=== PATIENT | female | born 1935 | race African-American/Black ===

== ENCOUNTER 2019-08-06 12:42 | Inpatient (IN) ==
[2019-08-06 13:33] LABS: Basophils % 1.2 % (0.0-0.8); Eosinophils # 0.1 10*3/uL (0.0-0.87); Eosinophils % 3.1 % (0.00-10.9); Hemoglobin 10.6 GM/DL (12.0-16.0); Immature Granulocytes % 0.3 %; Immature Granulocytes Absolute 0.01 #; Lymphocytes % 29.5 % (21.3-54.2); Mean Corpuscular HGB Conc 31.2 GM/DL (32-36); Mean Corpuscular Volume 73.9 FL (87-102); Mean Platelet Volume 9.4 FL (9.6-12.0); Monocytes % 18.2 % (1.7-12.7); Neutrophils % 47.7 % (38.7-73.9); Platelet Count 243 T/CUMM (130-400); Red Cell Distribution Width 19.9 % (9.3-17.3); White Blood Count 3.3 T/CUMM (4-12)
[2019-08-06 14:01] LABS: Albumin 2.7 G/DL (3.4-5.0); Bilirubin,Total 0.4 MG/DL (0.2-1.0); Calcium 8.7 MG/DL (8.5-10.1); Osmolality,Calculated 274.1 MOS/KG (273-304); PT Patient Result 94.6 SECS (9.6-12.2); Total Protein 6.8 G/DL (6.4-8.3)
[2019-08-06 14:04] LABS: INR 8.9
[2019-08-06 14:26] LABS: Band Neutrophils 2 % (0-10); Lymphocytes 26 % (20-55); Platelet Estimate Normal; Segmented Neutrophils 58 % (50-85); Total Cells Counted 100
[2019-08-06 14:28] LABS: Hypochromasia Slight; Microcytosis 1+
[2019-08-06] MEDS ORDERED: FUROSEMIDE 40 MG/4 ML VIAL IV STA (15:34)
[2019-08-06] MEDS ORDERED: ONDANSETRON 4 MG/2 ML VIAL IV PRN (15:37)
[2019-08-06] MEDS ORDERED: ACETAMINOPHEN 325 MG TABLET PO PRN (15:37)
[2019-08-06] MEDS ORDERED: MORPHINE 4 MG/1 ML VIAL IV PRN (15:37)
[2019-08-06] MEDS ORDERED: MAGNESIUM SULF RIDER 4 GM in PREMIX 1 EACH IV PRN (15:43)
[2019-08-06] MEDS ORDERED: POTASSIUM CHLORIDE RIDER 10 MEQ in PREMIX 1 EACH IV PRN (15:49)
[2019-08-06] MEDS ORDERED: PHYTONADIONE 5 MG/5 ML ORAL.SYR PO STA ×2 (15:50→15:56)
[2019-08-06 16:42] LABS: Apearance,Urine CLEAR (Clear); Bilirubin,Urine Negative (Negative); Blood, Urine Small mg/dL (Negative); Glucose,Urine (UA) Negative (Negative); Ketones,Urine Negative (Negative); Nitrite,Urine Negative (Negative); Protein,Urine Negative; RBC,Urine 1 /HPF (0-4); Squamous Epithelial Cell,Urine Occasional /HPF (0-10); Urine Color Yellow (Yellow); Urine Specific Gravity 1.006 (1.001-1.035); Urine Urobilinogen < 2.0 EU/DL (0.2-1.0); WBC,Urine 1 /HPF (0-6)
[2019-08-06] MEDS ORDERED: PNEUMOCOCCAL VACCINE (13 VALENT) 0.5 ML SYRINGE IM ONE (18:52)
[2019-08-06] MEDS: POTASSIUM CHLORIDE 20 MEQ TABLET PO PRN (20:44)
[2019-08-07] MEDS: POTASSIUM CHLORIDE 20 MEQ TABLET PO PRN ×4 (01:58→12:45)
[2019-08-07 06:18] LABS: Basophils % 1.2 % (0.0-0.8); Eosinophils # 0.2 10*3/uL (0.0-0.87); Eosinophils % 4.7 % (0.00-10.9); Hematocrit 30.8 VOL% (35.7-47.0); Hemoglobin 9.7 GM/DL (12.0-16.0); Immature Granulocytes % 0.3 %; Immature Granulocytes Absolute 0.01 #; Lymphocytes # 1.1 10*3/uL (1.4-4.0); Mean Corpuscular HGB Conc 31.5 GM/DL (32-36); Mean Platelet Volume 9.8 FL (9.6-12.0); Monocytes % 21.7 % (1.7-12.7); Neutrophils % 40.1 % (38.7-73.9); Platelet Count 226 T/CUMM (130-400); Red Blood Count 4.22 MC/CUMM (3.8-5.5); Red Cell Distribution Width 19.9 % (9.3-17.3); White Blood Count 3.4 T/CUMM (4-12)
[2019-08-07 06:41] LABS: INR 4.4
[2019-08-07 06:45] LABS: Eosinophils 2 % (0-10); Lymphocytes 27 % (20-55); Platelet Estimate Normal; Segmented Neutrophils 52 % (50-85); Total Cells Counted 100
[2019-08-07 06:46] LABS: Anisocytosis 2+; Microcytosis 2+
[2019-08-07 06:47] LABS: Hypochromasia 1+; Ovalocytes Few; Target Cells Slight
[2019-08-07 06:55] LABS: PT Patient Result 47.4 SECS (9.6-12.2)
[2019-08-07 07:12] LABS: Albumin 2.4 G/DL (3.4-5.0); Bilirubin,Total 0.9 MG/DL (0.2-1.0); Calcium 9.1 MG/DL (8.5-10.1); Osmolality,Calculated 278.5 MOS/KG (273-304); Total Protein 6.5 G/DL (6.4-8.3)
[2019-08-07] MEDS: FUROSEMIDE 40 MG/4 ML VIAL IV SCH ×2 (08:44→16:13)
[2019-08-07] MEDS: METOPROLOL TARTRATE 50 MG TABLET PO SCH ×2 (08:45→20:49)
[2019-08-07] MEDS: PANTOPRAZOLE 40 MG TABLET PO SCH (08:45)
[2019-08-07] MEDS: SERTRALINE 100 MG TABLET PO SCH (08:45)
[2019-08-07] MEDS: LISINOPRIL/HCTZ 20-25 MG TABLET PO SCH (08:45)
[2019-08-07] MEDS: ATORVASTATIN 40 MG TABLET PO SCH (08:45)
[2019-08-07] MEDS: MAGNESIUM SULF RIDER 2 GM in PREMIX 1 EACH IV PRN (08:46)
[2019-08-07] MEDS ORDERED: amLODIPine 5 MG TABLET PO SCH (09:00)
[2019-08-08 05:23] LABS: Basophils # 0.1 10*3/uL (0.0-0.2); Basophils % 1.4 % (0.0-0.8); Eosinophils # 0.1 10*3/uL (0.0-0.87); Eosinophils % 3.6 % (0.00-10.9); Hematocrit 32.9 VOL% (35.7-47.0); Hemoglobin 10.2 GM/DL (12.0-16.0); Immature Granulocytes % 0.3 %; Immature Granulocytes Absolute 0.01 #; Lymphocytes # 1.3 10*3/uL (1.4-4.0); Lymphocytes % 36.3 % (21.3-54.2); Mean Corpuscular Volume 73.8 FL (87-102); Mean Platelet Volume 9.3 FL (9.6-12.0); Monocytes % 25.1 % (1.7-12.7); Neutrophils % 33.3 % (38.7-73.9); Platelet Count 218 T/CUMM (130-400); Red Blood Count 4.46 MC/CUMM (3.8-5.5); Red Cell Distribution Width 20.1 % (9.3-17.3); White Blood Count 3.7 T/CUMM (4-12)
[2019-08-08 05:32] LABS: INR 2.3
[2019-08-08 05:34] LABS: PT Patient Result 25.2 SECS (9.6-12.2)
[2019-08-08 05:43] LABS: Albumin 2.6 G/DL (3.4-5.0); Bilirubin,Total 0.8 MG/DL (0.2-1.0); Calcium 9.4 MG/DL (8.5-10.1); Osmolality,Calculated 279.7 MOS/KG (273-304); Total Protein 6.7 G/DL (6.4-8.3)
[2019-08-08 06:23] LABS: Anisocytosis 1+; Eosinophils 2 % (0-10); Hypochromasia 1+; Lymphocytes 36 % (20-55); Microcytosis Slight; Ovalocytes Few; Platelet Estimate Adequate; Polychromasia Slight; Segmented Neutrophils 53 % (50-85); Smudge Cells Few; Target Cells Few; Total Cells Counted 100
[2019-08-08] MEDS: POTASSIUM CHLORIDE 20 MEQ TABLET PO PRN (06:46)
[2019-08-08] MEDS: ATORVASTATIN 40 MG TABLET PO SCH (08:36)
[2019-08-08] MEDS: FUROSEMIDE 40 MG/4 ML VIAL IV SCH (08:36)
[2019-08-08] MEDS: LISINOPRIL/HCTZ 20-25 MG TABLET PO SCH (08:36)
[2019-08-08] MEDS: METOPROLOL TARTRATE 50 MG TABLET PO SCH ×2 (08:36→21:36)
[2019-08-08] MEDS: MAGNESIUM SULF RIDER 2 GM in PREMIX 1 EACH IV PRN (08:37)
[2019-08-08] MEDS: PANTOPRAZOLE 40 MG TABLET PO SCH (08:38)
[2019-08-08] MEDS: SERTRALINE 100 MG TABLET PO SCH (08:38)
[2019-08-08] MEDS: FUROSEMIDE 40 MG TABLET PO SCH (15:24)
[2019-08-09 05:17] LABS: Basophils # 0.1 10*3/uL (0.0-0.2); Basophils % 1.1 % (0.0-0.8); Eosinophils # 0.2 10*3/uL (0.0-0.87); Eosinophils % 3.9 % (0.00-10.9); Hematocrit 32.7 VOL% (35.7-47.0); Hemoglobin 10.1 GM/DL (12.0-16.0); Immature Granulocytes % 0.2 %; Immature Granulocytes Absolute 0.01 #; Lymphocytes # 1.4 10*3/uL (1.4-4.0); Lymphocytes % 31.3 % (21.3-54.2); Mean Corpuscular HGB Conc 30.9 GM/DL (32-36); Mean Corpuscular Volume 73.5 FL (87-102); Mean Platelet Volume 9.9 FL (9.6-12.0); Monocytes % 23.6 % (1.7-12.7); Neutrophils % 39.9 % (38.7-73.9); Platelet Count 226 T/CUMM (130-400); Red Blood Count 4.45 MC/CUMM (3.8-5.5); Red Cell Distribution Width 19.9 % (9.3-17.3); White Blood Count 4.4 T/CUMM (4-12)
[2019-08-09 05:32] LABS: INR 2.2
[2019-08-09 05:39] LABS: PT Patient Result 24.1 SECS (9.6-12.2)
[2019-08-09 05:46] LABS: Eosinophils 4 % (0-10); Hypochromasia 1+; Lymphocytes 29 % (20-55); Microcytosis Slight; Ovalocytes Slight; Platelet Estimate Adequate; Segmented Neutrophils 42 % (50-85); Total Cells Counted 100
[2019-08-09 06:00] LABS: Albumin 2.6 G/DL (3.4-5.0); Bilirubin,Total 0.6 MG/DL (0.2-1.0); Calcium 9.4 MG/DL (8.5-10.1); Osmolality,Calculated 275.1 MOS/KG (273-304); Total Protein 6.9 G/DL (6.4-8.3)
[2019-08-09] MEDS: POTASSIUM CHLORIDE 20 MEQ TABLET PO PRN ×2 (06:40→12:28)
[2019-08-09] MEDS ORDERED: DIAZEPAM 5 MG TABLET PO ONE (07:37)
[2019-08-09] MEDS ORDERED: POTASSIUM CHLORIDE RIDER 10 MEQ in PREMIX 1 EACH IV PRN (07:37)
[2019-08-09] MEDS ORDERED: diphenhydrAMINE CAP 25 MG CAPSULE PO ONE (07:37)
[2019-08-09] MEDS ORDERED: MAGNESIUM SULF RIDER 2 GM in PREMIX 1 EACH IV PRN (07:37)
[2019-08-09] MEDS ORDERED: POTASSIUM CHLORIDE 20 MEQ TABLET PO ONE (07:39)
[2019-08-09] MEDS ORDERED: SODIUM CHLORIDE 0.45% 1,000 ML IV SCH (08:00)
[2019-08-09] MEDS: SERTRALINE 100 MG TABLET PO SCH (09:01)
[2019-08-09] MEDS: ATORVASTATIN 40 MG TABLET PO SCH (09:02)
[2019-08-09] MEDS: FUROSEMIDE 40 MG TABLET PO SCH ×2 (09:02→15:27)
[2019-08-09] MEDS: lisinopriL 20 MG TABLET PO SCH (09:02)
[2019-08-09] MEDS: METOPROLOL TARTRATE 50 MG TABLET PO SCH ×2 (09:02→21:09)
[2019-08-09] MEDS: PANTOPRAZOLE 40 MG TABLET PO SCH (09:02)
[2019-08-09] MEDS: SODIUM CHLORIDE 0.9% 1,000 ML IV SCH ×2 (12:50→21:14)
[2019-08-09] MEDS ORDERED: PHYTONADIONE 5 MG/5 ML ORAL.SYR PO ONE (20:00)
[2019-08-09] MEDS: SIMETHICONE CHEW 125 MG TABLET PO SCH (21:09)
[2019-08-10 05:29] LABS: Basophils # 0.1 10*3/uL (0.0-0.2); Basophils % 1.4 % (0.0-0.8); Eosinophils # 0.2 10*3/uL (0.0-0.87); Eosinophils % 3.4 % (0.00-10.9); Hematocrit 34.2 VOL% (35.7-47.0); Hemoglobin 10.6 GM/DL (12.0-16.0); Immature Granulocytes % 0.2 %; Immature Granulocytes Absolute 0.01 #; Lymphocytes # 1.5 10*3/uL (1.4-4.0); Lymphocytes % 34.2 % (21.3-54.2); Mean Corpuscular Volume 73.7 FL (87-102); Mean Platelet Volume 9.9 FL (9.6-12.0); Monocytes % 20.8 % (1.7-12.7); Platelet Count 235 T/CUMM (130-400); Red Blood Count 4.64 MC/CUMM (3.8-5.5); Red Cell Distribution Width 20.1 % (9.3-17.3); White Blood Count 4.4 T/CUMM (4-12)
[2019-08-10 05:55] LABS: Calcium 9.2 MG/DL (8.5-10.1)
[2019-08-10 05:59] LABS: Anisocytosis 2+; Eosinophils 3 % (0-10); Lymphocytes 26 % (20-55); Microcytosis 2+; Nucleated Red Blood Cells 1 (0-5); Platelet Estimate Normal; Segmented Neutrophils 52 % (50-85); Total Cells Counted 100
[2019-08-10 06:00] LABS: Hypochromasia 1+; Ovalocytes Few; Target Cells 1+
[2019-08-10] MEDS ORDERED: diphenhydrAMINE CAP 25 MG CAPSULE PO ONE ×2 (06:00→09:00)
[2019-08-10] MEDS ORDERED: DIAZEPAM 5 MG TABLET PO ONE ×2 (06:00→09:00)
[2019-08-10 06:01] LABS: Polychromasia Slight; Stomatocytes Few
[2019-08-10 06:16] LABS: PT Patient Result 21.3 SECS (9.6-12.2)
[2019-08-10] MEDS: SODIUM CHLORIDE 0.9% 1,000 ML IV SCH ×2 (06:28→18:00)
[2019-08-10] MEDS: METOPROLOL TARTRATE 50 MG TABLET PO SCH ×3 (06:32→20:53)
[2019-08-10] MEDS: lisinopriL 20 MG TABLET PO SCH ×2 (06:33→10:37)
[2019-08-10] MEDS ORDERED: HEPARIN/NACL 0.9% 2 UNITS/ML 1,500 ML IV ONE (06:55)
[2019-08-10] MEDS ORDERED: LIDOCAINE 1% 20 ML VIAL ONE ×2 (07:26→08:02)
[2019-08-10] MEDS ORDERED: fentaNYL 100 MCG/2 ML VIAL ONE (07:28)
[2019-08-10] MEDS ORDERED: MIDAZOLAM 2 MG/2 ML VIAL ONE (07:28)
[2019-08-10] MEDS: SIMETHICONE CHEW 125 MG TABLET PO SCH ×4 (10:36→20:53)
[2019-08-10] MEDS: FUROSEMIDE 40 MG TABLET PO SCH ×2 (10:36→16:54)
[2019-08-10] MEDS: SERTRALINE 100 MG TABLET PO SCH (14:28)
[2019-08-10] MEDS: PANTOPRAZOLE 40 MG TABLET PO SCH (14:28)
[2019-08-10] MEDS: ATORVASTATIN 40 MG TABLET PO SCH (14:28)
[2019-08-11 04:54] LABS: Hematocrit 33.1 VOL% (35.7-47.0); Hemoglobin 10.1 GM/DL (12.0-16.0); Mean Corpuscular Volume 74.2 FL (87-102); Red Blood Count 4.46 MC/CUMM (3.8-5.5); White Blood Count 4.7 T/CUMM (4-12)
[2019-08-11 04:55] LABS: Basophils # 0.1 10*3/uL (0.0-0.2); Basophils % 1.3 % (0.0-0.8); Eosinophils # 0.2 10*3/uL (0.0-0.87); Eosinophils % 3.6 % (0.00-10.9); Immature Granulocytes % 0.4 %; Immature Granulocytes Absolute 0.02 #; Lymphocytes # 1.3 10*3/uL (1.4-4.0); Lymphocytes % 28.7 % (21.3-54.2); Mean Corpuscular HGB Conc 30.5 GM/DL (32-36); Mean Platelet Volume 8.9 FL (9.6-12.0); Monocytes % 20.8 % (1.7-12.7); Neutrophils % 45.2 % (38.7-73.9); Platelet Count 199 T/CUMM (130-400); Red Cell Distribution Width 20.2 % (9.3-17.3)
[2019-08-11 05:01] LABS: INR 1.4; PT Patient Result 14.9 SECS (9.6-12.2)
[2019-08-11 05:24] LABS: Osmolality,Calculated 278.8 MOS/KG (273-304)
[2019-08-11 05:45] LABS: Anisocytosis 1+; Eosinophils 4 % (0-10); Hypochromasia 1+; Lymphocytes 28 % (20-55); Segmented Neutrophils 54 % (50-85); Smudge Cells Few; Total Cells Counted 100
[2019-08-11 05:46] LABS: Ovalocytes 1+; Platelet Estimate Adequate
[2019-08-11] MEDS: FUROSEMIDE 40 MG TABLET PO SCH (09:00)
[2019-08-11] MEDS: lisinopriL 20 MG TABLET PO SCH (09:00)
[2019-08-11] MEDS: SERTRALINE 100 MG TABLET PO SCH (09:00)
[2019-08-11] MEDS: ATORVASTATIN 40 MG TABLET PO SCH (09:00)
[2019-08-11] MEDS: PANTOPRAZOLE 40 MG TABLET PO SCH (09:01)
[2019-08-11] MEDS: METOPROLOL TARTRATE 50 MG TABLET PO SCH (09:01)
[2019-08-11] MEDS: SIMETHICONE CHEW 125 MG TABLET PO SCH (09:16)
[2019-08-11] MEDS: POTASSIUM CHLORIDE 20 MEQ TABLET PO PRN ×2 (10:26→11:59)
[2019-08-11] MEDS: MAGNESIUM SULF RIDER 2 GM in PREMIX 1 EACH IV PRN (10:27)
[2019-08-11] MEDS ORDERED: APIXABAN 2.5 MG TABLET PO ONE (11:24)
[2019-08-11 11:31] VITALS: BP 105/67
[2019-08-11] MEDS ORDERED: WARFARIN 5 MG TABLET PO SCH (18:00)
== END 2019-08-11 14:14 | disposition home health service (06) | DRG 286 ==
LOC: N.ED 12:42 → SUATTDRO 15:37 → N.EDINP 15:37 → N.TELEN 17:56
PROVIDERS: ADMIT Emergency Medicine; ATTEND Hospitalist